=== PATIENT | female | born 1985 | race Caucasian/White ===

== ENCOUNTER 2017-02-03 20:07 | Emergency (ER) | payer OTHER ==
[2017-02-03 20:12] VITALS: BP 111/54
[2017-02-03] MEDS ORDERED: TORADOL IM ONE (21:21)
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
== END 2017-02-03 22:10 | disposition home or self-care (01) ==
LOC: ED 20:07
DX: M79.1 Myalgia (principal); V89.2XXA Person injured in unspecified motor-vehicle accident, traffic, initial encounter; Y93.89 Activity, other specified; Y92.89 Other specified places as the place of occurrence of the external cause; Y99.8 Other external cause status
CPT/HCPCS: 96372; 99282; J1885